=== PATIENT | female | born 1935 | race Two or more races ===

== ENCOUNTER 2016-12-29 16:41 | Emergency (ER) | payer MEDICARE, BC ==
[~2016-12-29] VITALS: Ht 149.9 cm; Wt 70.3 kg
[~2016-12-29 16:41] MED LIST: ATENOLOL; JANUVIA; METFORMIN; PRADAXA; SOTALOL
[2016-12-29] MEDS ORDERED: SULFAMETH/TRIMETH 800/160 MG TABLET PO ONE (17:00)
[2016-12-29 17:10] VITALS: BP 117/70
[2016-12-29] MEDS ORDERED: SULFAMETH/TRIMETH 800/160 MG TABLET ONE (17:12)
== END 2016-12-29 17:11 | disposition home or self-care (01) ==
LOC: ER 16:42
DX: L03.114 Cellulitis of left upper limb (principal); I10 Essential (primary) hypertension; E11.9 Type 2 diabetes mellitus without complications; I48.91 Unspecified atrial fibrillation; Z79.01 Long term (current) use of anticoagulants
CPT/HCPCS: 99283; A4663

== ENCOUNTER 2017-03-19 22:20 | Inpatient (IN) | payer MEDICARE, BC ==
[~2017-03-19] VITALS: Ht 162.6 cm; Wt 69.9 kg
[2017-03-19] MEDS ORDERED: RIVA15TA2 PO (22:32)
[2017-03-19] MEDS ORDERED: LOSA50TA21 PO (22:32)
[2017-03-19] MEDS ORDERED: METF500T4 PO (22:32)
[2017-03-19] MEDS ORDERED: OMEP40CA37 PO (22:32)
[2017-03-19] MEDS ORDERED: ASPI81TA31 PO (22:32)
[2017-03-19] MEDS ORDERED: GABA-532 PO (22:32)
[2017-03-19] MEDS ORDERED: POTA8TAB8 PO (22:32)
[2017-03-19] MEDS ORDERED: GLIM2TAB2 PO (22:32)
[2017-03-19] MEDS ORDERED: LEVO75TA7 PO (22:32)
[2017-03-19] MEDS ORDERED: CARV25TA2 PO (22:32)
[2017-03-19] MEDS ORDERED: SIMV20TA6 PO (22:32)
[2017-03-19] MEDS ORDERED: FURO20TA4 PO (22:32)
[2017-03-19] MEDS ORDERED: MAGN400T6 PO (22:32)
[2017-03-19] MEDS ORDERED: NATE120T6 PO (22:32)
--- NOTE | 2017-03-19 22:43 | NUR ---
Patient BIB [facility] for c/o diarrhea. Patient presents with c/o diarrhea for 4 days, A/O x4, Ambulatory, able to make needs known, does not appear to be in distress at this time. Patient states that she has felt "weak" for approximately a week. Patient appears anxious/nervous, tensing muscles during treatments/assessments. To room 4B.
[2017-03-19 23:16] LABS: BASOPHILS % (AUTO) 0.3 % (0.0-2.0); EOSINOPHILS # (AUTO) 0.1 K/uL (0.0-0.7); HEMATOCRIT 35.7 % (37-47); HEMOGLOBIN 11.9 G/DL (12.0-16.0); LYMPHOCYTES # (AUTO) 0.3 K/UL (0.8-4.8); LYMPHOCYTES % (AUTO) 3.6 % (20.5-51.5); MEAN CORPUSCULAR HEMOGLOBIN 29.3 UUG (27.0-31.0); MEAN CORPUSCULAR HGB CONC 33 g/dL (32.0-37.0); MEAN CORPUSCULAR VOLUME 88.3 FL (81.0-99.0); MONOCYTES # (AUTO) 0.1 K/UL (0.1-1.30); MONOCYTES % (AUTO) 1.1 % (0.0-11.0); NEUTROPHILS # (AUTO) 7.8 K/UL (1.8-8.9); PLATELET COUNT (AUTO) 124 K/UL (150-450); RED BLOOD CELL COUNT(AUTO) 4.05 MIL/UL (4.2-5.4); WHITE BLOOD COUNT (AUTO) 8.3 K/UL (4.0-11.2)
--- NOTE | 2017-03-19 23:20 | NUR ---
Patient to Radiology for CT scan via gurney.
[2017-03-19 23:32] LABS: ALANINE AMINOTRANSFERASE 21 U/L (14-59); ALKALINE PHOSPHATASE 54 U/L (50-136); ASPARTATE AMINOTRANSFERASE 15 U/L (15-37); BILIRUBIN,DIRECT 0.2 mg/dL (0.0-0.2); BILIRUBIN,TOTAL 0.6 mg/dL (0.2-1.0); CARBON DIOXIDE 27 mmol/L (21-32); CHLORIDE 98 mmol/L (98-107); CREATININE 1.8 mg/dL (0.6-1.3); GLUCOSE 141 mg/dL (74-106); LIPASE 382 U/L (73-393); POTASSIUM 4.4 mmol/L (3.5-5.1); TOTAL PROTEIN, SERUM 7.8 g/dL (6.4-8.2); UREA NITROGEN, BLOOD 58 mg/dL (7-18)
--- NOTE | 2017-03-19 23:47 | NUR ---
Patient returned from Radiology, to room 4B.
--- NOTE | 2017-03-20 00:16 | NUR ---
Call placed to patient's PCP [Walt Duggan ], Dr. Yao (on-call) will be paged.
[2017-03-20 00:35] LABS: *BILIRUBIN,URIN NEGATIVE (NEGATIVE); *BLOOD, URINE 2+ (NEGATIVE); *CLARITY,URINE CLOUDY (CLEAR); *COLOR,URINE YELLOW (YELLOW); *KETONES,URINE NEGATIVE (NEGATIVE); *PROTEIN,URINE 2+ (NEGATIVE); *UROBILINOGEN,URINE 0.2 E.U./dl (NORMAL); LEUKOCYTE ESTERASE ,URINE 3+ (NEGATIVE); NITRITE, URINE POSITIVE (NEGATIVE); PH,URINE 5.5 (5.0-8.0); UGLUCOSE NEGATIVE (NEGATIVE)
[2017-03-20 00:42] LABS: BACTERIA,URINE MANY /HPF (NONE SEEN); RBC,URINE 20-50 /HPF (0-3); SQUAMOUS EPITHELIAL CELL,UR MODERATE /HPF (NONE SEEN); WBC,URINE TNTC /HPF (0-3)
--- NOTE | 2017-03-20 00:57 | NUR ---
[facility] supervisor fabrication paged for Dr. Piper
--- NOTE | 2017-03-20 01:40 | NUR ---
PT RECEIVED FROM ED VIA GURDEBBY. DAUGHTER AT BEDSIDE. A/OX4. ABLE TO MAKE NEEDS KNOWN. V/S STABLE. IN NO ACUTE DISTRESS. NO C/O PAIN AT THIS TIME. PT IS 89 A-FIB ON THE TELE MONITOR. IV INTACT AND PATENT. PT ORIENTED TO ROOM. SAFETY MEASURES IMPLEMENTED. CALL LIGHT WITHIN REACH.
--- NOTE | 2017-03-20 01:48 | NUR ---
Pt. admitted to TELE, under care of Dr. Pimentel Belongs List completed
[2017-03-20 04:00] VITALS: BP 101/47
--- NOTE | 2017-03-20 05:45 | NUR ---
END OF SHIFT NOTES. PT SLEPT INTERMITTENTLY THROUGHOUT SHIFT. IN STABLE CONDITION. IV ABX INFUSED. CONTROLLED A-FIB IN THE 90'S ON THE TELE MONITOR. CDIFF PRECAUTIONS IN PLACE. ALL NEEDS ATTENDED. SAFETY MAINTAINED. CALL LIGHT WITHIN REACH.
--- NOTE | 2017-03-20 06:03 | NUR ---
NON-ADMIN PROTONIX. PT IS A NEW ADMISSION
[2017-03-20 07:16] LABS: BASOPHILS % (AUTO) 0.1 % (0.0-2.0); EOSINOPHILS % (AUTO) 0.1 % (0.0-7.0); HEMATOCRIT 28.9 % (31.2-41.9); HEMOGLOBIN 9.9 g/dL (10.9-14.3); LYMPHOCYTES # (AUTO) 0.5 K/uL (20.0-40.0); LYMPHOCYTES % (AUTO) 5.4 % (20.5-51.5); MEAN CORPUSCULAR HEMOGLOBIN 30.3 uug (24.7-32.8); MEAN CORPUSCULAR HGB CONC 34 g/dL (32.3-35.6); MEAN CORPUSCULAR VOLUME 88.5 fL (75.5-95.3); MONOCYTES # (AUTO) 0.7 K/uL (2.0-10.0); MONOCYTES % (AUTO) 6.8 % (0.0-11.0); NEUTROPHILS # (AUTO) 8.7 K/uL (1.8-8.9); NEUTROPHILS % (AUTO) 87.6 % (38.5-71.5); PLATELET COUNT (AUTO) 128 K/uL (179-408); RED BLOOD CELL COUNT(AUTO) 3.26 MIL/uL (3.63-4.92); WHITE BLOOD COUNT (AUTO) 9.9 K/uL (3.8-11.8)
[2017-03-20 07:24] LABS: ALANINE AMINOTRANSFERASE 21 U/L (14-59); ALKALINE PHOSPHATASE 41 U/L (50-136); ASPARTATE AMINOTRANSFERASE 15 U/L (15-37); BILIRUBIN,TOTAL 0.5 mg/dL (0.2-1.0); CARBON DIOXIDE 25 mmol/L (21-32); CHLORIDE 98 mmol/L (98-107); CHOLESTEROL 111 mg/dL (<200); GLUCOSE 212 mg/dL (74-106); HDL CHOLESTEROL 32 mg/dL (40-60); PHOSPHOROUS 3.8 mg/dL (2.5-4.9); POTASSIUM 4.2 mmol/L (3.5-5.1); TOTAL PROTEIN, SERUM 6.5 g/dL (6.4-8.2); TRIGLYCERIDES 109 MG/DL (30-150)
[2017-03-20 07:29] LABS: MAGNESIUM 1.2 mg/dL (1.8-2.4)
[2017-03-20 07:30] LABS: UREA NITROGEN, BLOOD 63 mg/dL (7-18)
[2017-03-20 07:32] LABS: THYROID STIMULATING HORMONE 0.325 mIU/mL (0.358-3.740)
--- NOTE | 2017-03-20 08:00 | NUR ---
awake oriented, denies of abdominal pain, no diarrhea, in need of stool for C diff- placed on isolation for precautionary measures-explained plan of care- verbalized understanding, repositioned and readied for breakfast, safety measures maintained, call light within reach
--- NOTE | 2017-03-20 09:30 | NUR ---
seen by Dr Mauricio- see notes
[2017-03-20 11:03] VITALS: BP 106/55
--- NOTE | 2017-03-20 11:03 | NUR ---
ambulated with PT- in the room and hallway- see PT notes
--- NOTE | 2017-03-20 11:48 | NUR ---
echo done in the room- tolerated well
--- NOTE | 2017-03-20 14:18 | NUR ---
Clinical pharmacy note-Vancomycin dosing per pharmacy Subjective: To start Vancomycin dosing on this patient for uti with early sepsis Objective: BUN 63 Scr 2.0 WBC 9.9 Temp 98.6 Ht 5'4" Wt 154 lbs Assessment/Plan: Since renal function is decreased, will dose by fall-off random level for now. Vancomycin 1gram IV x1 was given today at 9am and random ordered for tomorrow am with am labs. Will follow the level for further dosing.
[2017-03-20 14:58] VITALS: BP 100/48
--- NOTE | 2017-03-20 18:00 | NUR ---
family at bedside, no distress noted, all needs attended and met, call light within reach
[2017-03-20 20:00] VITALS: BP 94/52
[2017-03-21] VITALS: BP 110/60
--- NOTE | 2017-03-21 03:03 | NUR ---
RECEIVED PATIENT LAST NIGHT WITH DAUGHTER AT BEDSIDE. ALERT AND ORIENTED X4 LOOKING WEAK. VS WITHIN NORMAL LIMITS. DENIES ABDOMINAL PAIN. ENCOURAGED TO INCREASE ORAL FLUID INTAKE. CALL LIGHT WITHIN REACH.
--- NOTE | 2017-03-21 03:20 | NUR ---
COMPLAINT OF BACK PAIN WANTED TO SIT OUT IN THE CHAIR, ASSISTED AND SITTED OUT ON THE CHAIR WITH CALL LIGHT WITHIN REACH.
[2017-03-21 04:00] VITALS: BP 109/53
--- NOTE | 2017-03-21 07:04 | NUR ---
GIVEN TYLENOL FOR PAIN PER PT'S REQUEST THIS MORNING. OTHERWISE VSS. CALL LIGHT WITHIN REACH, ALL NEEDS ATTENDED.
--- NOTE | 2017-03-21 08:00 | NUR ---
AWAKE ALERT COOPERATE WELL NO DIARRHEA OR N/V EAT BREAKFAST WELL ON ASPIRATION AND FALL PRECAUTION CALL MADERA IN REACH
[2017-03-21 09:37] LABS: EOSINOPHILS # (AUTO) 0.1 K/uL (0.0-0.7); HEMATOCRIT 31.5 % (31.2-41.9); HEMOGLOBIN 10.7 g/dL (10.9-14.3); LYMPHOCYTES # (AUTO) 0.9 K/uL (20.0-40.0); MEAN CORPUSCULAR HEMOGLOBIN 30.2 uug (24.7-32.8); MONOCYTES # (AUTO) 0.7 K/uL (2.0-10.0); PLATELET COUNT (AUTO) 116 K/uL (179-408)
[2017-03-21 09:53] LABS: BASOPHILS % (AUTO) 0.5 % (0.0-2.0); LYMPHOCYTES % (AUTO) 12.1 % (20.5-51.5); MEAN CORPUSCULAR HGB CONC 34 g/dL (32.3-35.6); MEAN CORPUSCULAR VOLUME 89.1 fL (75.5-95.3); MONOCYTES % (AUTO) 9.3 % (0.0-11.0); NEUTROPHILS # (AUTO) 5.6 K/uL (1.8-8.9); NEUTROPHILS % (AUTO) 77.1 % (38.5-71.5); RED BLOOD CELL COUNT(AUTO) 3.54 MIL/uL (3.63-4.92)
[2017-03-21 09:55] LABS: WHITE BLOOD COUNT (AUTO) 7.3 K/uL (3.8-11.8)
--- NOTE | 2017-03-21 10:00 | NUR ---
DR MARTE SEE PATIENT AND LAB RESULT AND ORDER IN CHART OOB ASSIST UP IN CHAIR AND GO TO [facility] DOING WELL
[2017-03-21 11:12] VITALS: BP 98/61
[2017-03-21 11:38] LABS: ALANINE AMINOTRANSFERASE 26 U/L (14-59); ALKALINE PHOSPHATASE 43 U/L (50-136); ASPARTATE AMINOTRANSFERASE 22 U/L (15-37); BILIRUBIN,TOTAL 0.5 mg/dL (0.2-1.0); CARBON DIOXIDE 25 mmol/L (21-32); CHLORIDE 98 mmol/L (98-107); CREATININE 1.8 mg/dL (0.6-1.3); GLUCOSE 158 mg/dL (74-106); PHOSPHOROUS 3.6 mg/dL (2.5-4.9); POTASSIUM 4.1 mmol/L (3.5-5.1); TOTAL PROTEIN, SERUM 7.2 g/dL (6.4-8.2); UREA NITROGEN, BLOOD 56 mg/dL (7-18)
--- NOTE | 2017-03-21 12:00 | NUR ---
D/C INSTRUCTION REGARDING F/U WITH PMD CONTINUE HOME MEDICINE AND EDUCATION PK GIVE TO PATIENT AND FAMILY ,VERBALIZES UNDERSTAND AND HL WAS D/C PRIOR D/C HOME
--- NOTE | 2017-03-21 12:09 | NUR ---
Clinical pharmacy note-Vancomycin dosing per pharmacy Subjective: To continue Vancomycin dosing on this patient for uti with early sepsis Objective: BUN 63 (03/20) Scr 2.0 (03/20) WBC 9.9 (03/20) Temp 98.2 Ht 5'4" Wt 154 lbs Random level: 9.0 today with am labs Assessment/Plan: Since renal function is decreased with no new labs today, will dose by fall-off random level for now. Vancomycin 1gram IV x1 was given today at 9am based off random level and another random ordered for tomorrow am with am labs. Will follow the level for further dosing.
--- NOTE | 2017-03-21 12:30 | NUR ---
REFUSED TO TAKE BRUISE SKIN AND BLISTER AT RT LEG IT WAS INTACT AND DRY
[2017-03-21 13:00] VITALS: BP 113/56
--- NOTE | 2017-03-21 13:00 | NUR ---
VS TAKEN STABLE SEE VS FLOW SHEET NO PAIN OR SOB ASSIST TO [facility] VOIDING WELL URINE SENT TO LAB ORDER
--- NOTE | 2017-03-21 14:00 | NUR ---
PHAMACY INSTRUCTION ON DR PRECRIANDREINA AND HOME MEDICINE TO PT AND FAMILY ,UNDERSTAND IV HL WAS DISCONTINUE PRIOR D/C HOME AND D/C HOME TODAY WITH HER BELONGING ACCOMPANIES WITH FAMILY STABLE CONDITION NO SOB OR DIARRHEA
[2017-03-21 15:31] LABS: *BILIRUBIN,URIN NEGATIVE (NEGATIVE); *BLOOD, URINE 3+ (NEGATIVE); *CLARITY,URINE CLOUDY (CLEAR); *COLOR,URINE YELLOW (YELLOW); *KETONES,URINE NEGATIVE (NEGATIVE); *PROTEIN,URINE 1+ (NEGATIVE); *UROBILINOGEN,URINE 0.2 E.U./dl (NORMAL); LEUKOCYTE ESTERASE ,URINE 1+ (NEGATIVE); NITRITE, URINE NEGATIVE (NEGATIVE); PH,URINE 5.5 (5.0-8.0); UGLUCOSE NEGATIVE (NEGATIVE)
[2017-03-21 15:42] LABS: *CREATININE,URINE 46.6 mg/dL (30-125); *URINE TOTAL PROTEIN RANDOM 28.1 mg/dL (<150/24HR)
[2017-03-21 17:07] LABS: BACTERIA,URINE FEW /HPF (NONE SEEN); RBC,URINE 20-50 /HPF (0-3); SQUAMOUS EPITHELIAL CELL,UR FEW /HPF (NONE SEEN); WBC,URINE 50-80 /HPF (0-3)
== END 2017-03-21 14:00 | disposition home or self-care (01) | DRG 871 ==
LOC: ER 22:21 → TELE 03-20 01:30
PROVIDERS: ADMIT Internal Medicine; ATTEND Internal Medicine
DX: A41.9 Sepsis, unspecified organism (principal); N17.0 Acute kidney failure with tubular necrosis; D68.59 Other primary thrombophilia; E83.42 Hypomagnesemia; E87.1 Hypo-osmolality and hyponatremia; I48.91 Unspecified atrial fibrillation; N39.0 Urinary tract infection, site not specified; D63.8 Anemia in other chronic diseases classified elsewhere; E11.9 Type 2 diabetes mellitus without complications; I10 Essential (primary) hypertension; I25.10 Atherosclerotic heart disease of native coronary artery without angina pectoris; K21.9 Gastro-esophageal reflux disease without esophagitis; K52.9 Noninfective gastroenteritis and colitis, unspecified; K57.90 Diverticulosis of intestine, part unspecified, without perforation or abscess without bleeding; Z79.899 Other long term (current) drug therapy; B96.20 Unspecified Escherichia coli [E. coli] as the cause of diseases classified elsewhere
CPT/HCPCS: 36415; 70030-TC; 71010; 83690; 83735; 84100; 84156; 84300; 84443; 85025; 85730; 87077; 87086; 93005; 93307; A4663; J1815; J1956; J2405; J2543; J3370; J3475; J7050; J7120